=== PATIENT | female | born 1965 | race Caucasian/White ===

== ENCOUNTER → 2017-09-09 | Outpatient (CLI) | payer OTHER | LOC: M.RAD 13:45 | DX: M19.012 Primary osteoarthritis, left shoulder (principal); M75.22 Bicipital tendinitis, left shoulder ==

== ENCOUNTER → 2018-02-10 | Outpatient (CLI) | payer OTHER | LOC: M.MRI 11:00 | DX: M19.012 Primary osteoarthritis, left shoulder (principal); M25.412 Effusion, left shoulder; M75.82 Other shoulder lesions, left shoulder; M25.511 Pain in right shoulder ==

== ENCOUNTER 2018-07-04 15:54 | Emergency (ER) | payer OTHER ==
[~2018-07-04] VITALS: Ht 152.4 cm; Wt 98.0 kg
[2018-07-04] MEDS ORDERED: VITAMIN D1000 UNI1 PO (16:05)
[2018-07-04] MEDS ORDERED: METFORMIN HCL500 MG (16:05)
[2018-07-04] MEDS ORDERED: ZYRTEC10 M5 PO (16:05)
[2018-07-04] MEDS ORDERED: LOVASTAT20 (16:06)
[2018-07-04] MEDS ORDERED: CYMBALTA60 MG PO (16:06)
[2018-07-04] MEDS ORDERED: FELDENE20 MG PO (16:06)
[2018-07-04] MEDS ORDERED: TOPAMAX50 MG PO (16:07)
[2018-07-04] MEDS ORDERED: ZANAFLEX4 MG PO (16:07)
[2018-07-04] MEDS ORDERED: FLONASE 0.05%50 MCG NASAL (16:07)
[2018-07-04] MEDS ORDERED: SYNTHROID112 MC1 PO (16:07)
[2018-07-04] MEDS ORDERED: HYDROCHLOROTHIA25 M2 PO (16:07)
[2018-07-04] MEDS ORDERED: UNICOMPLEX M TA1 TA1 PO (16:08)
[2018-07-04 16:23] LABS: ABSOLUTE BASOPHILS 0.1 thou/uL (0.0-0.2); ABSOLUTE EOSINOPHILS 0.5 thou/uL (0.0-0.7); ABSOLUTE LYMPHOCYTES 2.8 thou/uL (0.8-5.3); ABSOLUTE MONOCYTES 0.6 thou/uL (0.0-1.2); ABSOLUTE NEUTROPHILS 5.2 thou/uL (1.6-8.1); BASOPHILS 0.8 %; EOSINOPHILS 5.6 %; HEMOGLOBIN 14.4 gm/dL (12.0-15.0); LYMPHOCYTES 30.7 %; MCH 30.4 pg (26.0-34.0); MCHC 34.2 g/dL (28.0-37.0); MCV 88.9 fL (80.0-100.0); MONOCYTES 6.3 %; MPV 9.1 fl. (7.2-11.1); NUCLEATED RBCS 0 /100WBC; PLATELET COUNT* 325 thou/uL (150-400); POLYS 56.6 %; RBC 4.73 mil/uL (4.20-5.00); RDW-CV 13.2 % (10.5-14.5); WBC 9.2 thou/uL (4.0-11.0)
[2018-07-04 16:29] LABS: CALCIUM 9.3 mg/dL (8.5-10.1)
[2018-07-04 16:31] LABS: APTT 28.9 Seconds (25.0-31.3)
[2018-07-04 16:34] LABS: ALBUMIN 3.7 g/dL (3.4-5.0); TOTAL BILIRUBIN 0.7 mg/dL (<0.1-1.0); TOTAL PROTEIN 8.4 g/dL (6.4-8.2)
[2018-07-04 17:30] VITALS: BP 145/84
[2018-07-04] MEDS ORDERED: POTASSIUM20 PO (19:08)
== END 2018-07-04 17:30 | disposition home or self-care (01) ==
LOC: M.ERS 15:54
PROVIDERS: Physician Assistant
DX: K64.4 Residual hemorrhoidal skin tags (principal); E87.6 Hypokalemia; I10 Essential (primary) hypertension; E11.9 Type 2 diabetes mellitus without complications; E78.5 Hyperlipidemia, unspecified

== ENCOUNTER 2018-07-27 16:36 | Inpatient (IN) | payer OTHER ==
[~2018-07-27] VITALS: Ht 152.4 cm; Wt 97.5 kg
[~2018-07-27 16:36] MED LIST: CYMBALTA60 MG PO; FELDENE20 MG PO; FLONASE 0.05%50 MCG NASAL; HYDROCHLOROTHIA25 M2 PO; LOVASTAT20 PO; METFORMIN HCL500 MG PO; POTASSIUM20 PO; SYNTHROID112 MC1 PO; TOPAMAX50 MG PO; UNICOMPLEX M TA1 TA1 PO; VITAMIN D3400 UNIT PO; ZANAFLEX4 MG PO; ZYRTEC10 M5 PO
[2018-07-27 16:43] VITALS: BP 137/63
[2018-07-27] MEDS ORDERED: SINGULAIR 10 MG10 M1 PO (16:50)
[2018-07-27] MEDS ORDERED: TESSALON PERLE100 MG PO (16:53)
[2018-07-27 18:12] LABS: CALCIUM 9.6 mg/dL (8.5-10.1); CREATININE 0.9 mg/dL (0.6-1.3); POTASSIUM 3.3 mmol/L (3.5-5.1)
[2018-07-27 18:23] LABS: ALBUMIN 3.8 g/dL (3.4-5.0); TOTAL BILIRUBIN 0.6 mg/dL (<0.1-1.0); TOTAL PROTEIN 8.7 g/dL (6.4-8.2)
[2018-07-27 18:49] LABS: ABSOLUTE BASOPHILS 0.1 thou/uL (0.0-0.2); ABSOLUTE EOSINOPHILS 0.6 thou/uL (0.0-0.7); ABSOLUTE LYMPHOCYTES 1.9 thou/uL (0.8-5.3); ABSOLUTE MONOCYTES 1.1 thou/uL (0.0-1.2); ABSOLUTE NEUTROPHILS 5.4 thou/uL (1.6-8.1); BASOPHILS 0.8 %; EOSINOPHILS 6.3 %; HEMATOCRIT 40.4 % (37.0-47.0); HEMOGLOBIN 13.7 gm/dL (12.0-15.0); LYMPHOCYTES 21.3 %; MCHC 33.9 g/dL (28.0-37.0); MCV 88.5 fL (80.0-100.0); MONOCYTES 11.9 %; NUCLEATED RBCS 0 /100WBC; PLATELET COUNT* 259 thou/uL (150-400); POLYS 59.7 %; RBC 4.57 mil/uL (4.20-5.00); RDW-CV 13.5 % (10.5-14.5); WBC 9.1 thou/uL (4.0-11.0)
[2018-07-27 19:09] LABS: BE 0.5 mmol/L (-2 to +3); HCO3 24.9 mmol/L (22.0-26.0); PCO2 39.3 mmHg (35.0-45.0); PO2 72.1 mmHg (75.0-100.0); pH 7.419 (7.340-7.450)
[2018-07-27 19:14] LABS: URINE BILIRUBIN NEGATIVE (Negative); URINE BLOOD NEGATIVE (Negative); URINE CLARITY CLEAR; URINE COLOR YELLOW; URINE GLUCOSE-RANDOM NEGATIVE (Negative); URINE KETONES NEGATIVE (Negative); URINE LEUKOCYTES-REFLEX NEGATIVE (Negative); URINE NITRITE-REFLEX NEGATIVE (Negative); URINE PROTEIN NEGATIVE (Negative); URINE SPECIFIC GRAVITY >= 1.030 (1.005-1.030); URINE UROBILINOGEN 0.2 E.U./dl (0.2-1.0)
[2018-07-27 20:16] VITALS: BP 133/67
[2018-07-27 20:30] VITALS: BP 129/65
[2018-07-27] MEDS ORDERED: DOXYCYCLINE 10100 MG PO (20:43)
[2018-07-27] MEDS ORDERED: FIBER GUMMIES1 EACH PO (20:48)
[2018-07-27] MEDS ORDERED: GAS RELIEF 8080 MG PO (20:49)
--- NOTE | 2018-07-27 20:49 | NUR ---
ADMIT TO [facility] FOR ASTHMA EXACERBATION. STATES SHE IS BREATHING BETTER NOW. STATES SHE IS FORGETFUL. RECENTLY DIAGNOSED WITH INVASIVE STAGE 3 CARCINOMA RECTAL CANCER. CHEMOTHERAPY ONCOLOGIST DR IRVIN. RADIATION ONCOLOGIST DR. MCCABE. SURGEON DR IBARRA GASTROENTEROLGIST DR. ÁLVAREZ NAVIGATOR DARCIE VÁZQUEZ PLAN TO START CHEMO/RADIATION AFTER THIS ILLNESS FOLLOWED BY SCANS AND THEN SURGERY IN ABOUT 6 MONTHS.
--- NOTE | 2018-07-27 22:00 | NUR ---
PATIENT RECENTLY DX WITH CA. BLIND. 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 LOW ENERGY PER PATIENT D/T ILLNESS. RESPONSIBLE FOR ALL MANAGER SALES TRAINING, INCOME, DRIVING, DOCTORS APPOINTMENTS, ETC. SHE IS FEELING OVERWHELMED. VM LEFT FOR CM AND CONSULT PLACED.
[2018-07-27] MEDS ORDERED: MELATONIN3 MG PO (23:31)
[2018-07-28] VITALS: BP 112/69
[2018-07-28 04:02] LABS: HEMATOCRIT 40.9 % (37.0-47.0); HEMOGLOBIN 13.8 gm/dL (12.0-15.0); MCH 30.1 pg (26.0-34.0); MCHC 33.7 g/dL (28.0-37.0); MCV 89.5 fL (80.0-100.0); MPV 9.4 fl. (7.2-11.1); NUCLEATED RBCS 0 /100WBC; PLATELET COUNT* 259 thou/uL (150-400); RBC 4.57 mil/uL (4.20-5.00); RDW-CV 13.5 % (10.5-14.5); WBC 8.8 thou/uL (4.0-11.0)
[2018-07-28 04:17] LABS: CALCIUM 8.9 mg/dL (8.5-10.1); CREATININE 0.9 mg/dL (0.6-1.3); POTASSIUM 3.8 mmol/L (3.5-5.1)
[2018-07-28 06:28] LABS: ABSOLUTE LYMPHOCYTES 0.4 thou/uL (0.8-5.3); ABSOLUTE MONOCYTES 0.1 thou/uL (0.0-1.2); ABSOLUTE NEUTROPHILS 8.3 thou/uL (1.6-8.1); PLATELET ESTIMATE ADEQUATE
--- NOTE | 2018-07-28 06:49 | NUR ---
STATES SHE CAN BREATHE BETTER THIS AM. CONTINUES ON 2 L NC.
[2018-07-28 08:15] VITALS: BP 139/75
--- NOTE | 2018-07-28 11:00 | NUR ---
MET WITH PT TO DISCUSS HOME SITUATION/DC PLANNING. PT LIVES WITH SPOUSE WHO IS BLIND AND HIS PARENTS. 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 SHE USES CPAP AT NIGHT PT HAS CANCER AND IS TO START CHEMO SOON, AWARE SHE WILL NEED TO RECOVER FROM THIS ILLNESS FIRST. PT STATED SHE MANAGES ALL HOUSEHOLD DUTIES AT HOME AND ASSIST SPOUSE NEEDED, STATES HIS MOTHER HELPS HIM WHEN SHE IS AT WORK. PT VOICING CONCERN ABOUT HOW SHE'LL MANAGE HOUSEHOLD WITH THIS ILLNESS AND ONCE SHE STARTS CHEMO, STATES 'DEPENDS' ON HER. BRAINSTORMED WITH HER RE: ASKING FOR HELP. PT HAS LARGE FAMILY THAT COULD ASSIST IF ASKED. ALSO HER INLAWS COULD ASSIST. SPOUSE IS ON DISABILITY. PT ASKING ABOUT OTHER HELP FOR HIM. WILL GIVE PT RESOURCES FOR BLIND PENSION, CANCER ACTION AND IN HOME CARE THRU MEDICAID (SPOUSE HAS MEDICAID). CM TO FOLLOW
--- NOTE | 2018-07-28 12:47 | EKG ---
[place] [address] ELECTROCARDIOGRAM REPORT Name: MISTI GUSMAN Room: [address] IN [facility].#: [id number] Admission: 07/27/18 Attend Phys: Jorge Yan MD Discharge: Date of : 61 Report #: [id number] THIS REPORT FOR: //name// [facility] ED Test Date: 2018-07-27 Test Time: 17:55:49 Pat Name: MISTI GUSMAN Department: Room: [facility] Gender: Black Studies Professor: Hernesto CASAS : 1965 Requested By: Ziggy Marie Order Number: [id number] MD: Bernardo Oshea Measurements Intervals [place] Rate: 84 P: 21 MA: 152 QRS: -19 QRSD: 117 T: 54 QT: 405 QTc: 479 Interpretive Statements Sinus rhythm Incomplete right bundle branch block No previous ECG available for comparison Electronically Signed On 07-28-2018 12:47:24 AIR CONDITIONING ENGINEER by Bernardo Oshea [email or web address] <ELECTRONICALLY SIGNED> By: Bernardo Oshea MD, [facility] 07/28/18 1247 1755 1755 Bernardo Oshea MD, FAC /EPI
--- NOTE | 2018-07-28 13:30 | NUR ---
Nutrition: Consult received for "cancer." Pt has h/o asthma, rectal cancer. Will start chemo soon. On steroids. BG 180s, alb 3.8. Pt stated her usual wt is 215#. She stated her appetite is good and she is eating well. Regular diet ordered. Pt and denied any nutrition questions/needs. Low risk at this time.
--- NOTE | 2018-07-28 17:26 | NUR ---
PATIENT ALERT AND ORIENTED X 4. VITAL SIGNS STABLE ON 2L OF OXYGEN NASAL CANULA. AFEBRILE. UP WITH ASSISTANCE TO THE BATHROOM. IV PATENT AND SALINE LOCKED. DENIES PAIN AND NAUSEA AT THIS TIME. FALL PRECAUTIONS IN PLACE AND BED ALARM ON. HOURLY ROUNDS MAINTAINED THROUGHOUT THE SHIFT. CALL LIGHT WITHIN REACH. NURSING WILL CONTINUE TO MONITOR.
[2018-07-28 18:55] VITALS: BP 97/52
[2018-07-29 04:30] LABS: ALBUMIN 3.2 g/dL (3.4-5.0); CALCIUM 8.7 mg/dL (8.5-10.1); POTASSIUM 3.6 mmol/L (3.5-5.1); TOTAL BILIRUBIN 0.3 mg/dL (<0.1-1.0); TOTAL PROTEIN 7.6 g/dL (6.4-8.2)
[2018-07-29 04:44] LABS: HEMOGLOBIN 13.5 gm/dL (12.0-15.0); MCH 30.2 pg (26.0-34.0); MCHC 33.7 g/dL (28.0-37.0); MCV 89.6 fL (80.0-100.0); MPV 9.3 fl. (7.2-11.1); NUCLEATED RBCS 0 /100WBC; PLATELET COUNT* 300 thou/uL (150-400); RBC 4.47 mil/uL (4.20-5.00); RDW-CV 13.5 % (10.5-14.5); WBC 18.4 thou/uL (4.0-11.0)
--- NOTE | 2018-07-29 05:42 | NUR ---
REPORT RECEIVED FROM OFF GOING SHIFT AND CARE ASSUMMED. PT AAOX4. RESP REG AND UNALBORED SKIN W/D NO ACUTE DISTRESS NOTED. VSS AND NO ACUTE CHANGES DURING SHIFT. PT HAS NOTABLE AUDIBLE WHZ AND INCREASED COUGH AFTER BREATHING TREATMENTS. PT SATES SHE IS COUGHING UP THICK CLEAR SPUTUM THIS AM. WILL CONTINUE TO MONITOR.
[2018-07-29 07:56] LABS: ABSOLUTE LYMPHOCYTES 2.2 thou/uL (0.8-5.3); ABSOLUTE MONOCYTES 0.4 thou/uL (0.0-1.2); ABSOLUTE NEUTROPHILS 15.8 thou/uL (1.6-8.1); ATYPICAL LYMPHS 3 %; PLATELET ESTIMATE ADEQUATE
[2018-07-29 09:03] VITALS: BP 129/67
[2018-07-29 17:12] VITALS: BP 112/61
--- NOTE | 2018-07-29 17:27 | NUR ---
ASSUMED CARE OF PATIENT AFTER REPIRT AT APPROX 0730. ALERT AND OREINTED X4. ASSESSMENT COMPLETED AND CHARTED. VSS ON ROOM AIR. NO COMPLAINTS OF PAIN, NAUSEA, OR SOA. SOLUMEDROL ADMINISTERED ORDERED. PATIENT RESTED IN BED THROUGHOUT SHIFT AND HAD NO NEW COMPLAINTS. PATIENT WOULD REALLY LIKE TO DISCHARGE TOMORROW SHE HAS FOLLOW UP APPOINTMENTS AT [facility] COMING UP THIS WEEK. WILL RELAY THIS TO HER PHYSICIAN AND CASE MANAGEMENT. HOURLY ROUNDS COMPLETED, CALL LIGHT WITHIN REACH, NURSING WILL CONTINUE TO MONITOR.
[2018-07-29 20:50] VITALS: BP 134/72
--- NOTE | 2018-07-30 06:10 | NUR ---
PATIENT HAS SLEPT WELL THROUGHOUT MOST OF THE NIGHT. VSS ON 2L02 VIA NASAL CANNULA. MEDICATIONS GIVEN ORDERED AND CHARTED. PATIENT IS UP AD-PATRICIA AND STEADY. IV IN LEFT HAND-SL. PATIENT INSTRUCTED TO USE CALL LIGHT WHEN NEEDING ASSISTANCE. HOURLY ROUNDS MADE. WILL CONTINUE WITH PLAN OF CARE AND NURSING TO MONITOR.
[2018-07-30 09:22] VITALS: BP 127/73
[2018-07-30 16:00] VITALS: BP 132/68
--- NOTE | 2018-07-30 17:50 | NUR ---
ASSUMED CARE OF PATIENT AFTER REPORT AT APPROX 0730. ALERT AND ORIENTED X4. ASSESSMENT COMPLETED AND CHARTED. VSS ON ROOM AIR. PATIENTS LUNGS SOUND COURSE AND WHEEZES ON INSPIRATION. NO COMPLAINTS OF NAUSEA OR SOA. SOME COMPLAINTS OF BACK PAIN MANAGED WIHT ORAL MEDICATION. RT TRATMENTS AND SOLUMEFROL ADMINISTERED ORDERED. PATIENT HAVING ANXIETY ABOUT GOING HOME AND BEING SEEN AT THE CANCER CENTER LATER THIS WEEK. PATIENT STARTED HAVING NAUSEA AND VOMITING AFTER DINNER. ALSO HAVING BLOODY DIARRHEA AND VERY CONCERNED ABOUT THAT. NOTIFIED. PATING IS UP AD PATRICIA IN THE ROOM AND USING THE RESTROOM. HOURLY ROUNDS COMPLETED, CALL LIGHT IN REACH, NURSING WILL CONTINUE TO MONITOR.
[2018-07-30 19:40] VITALS: BP 132/62
[2018-07-31 04:18] LABS: ABSOLUTE MONOCYTES 1.4 thou/uL (0.0-1.2); ABSOLUTE NEUTROPHILS 10.1 thou/uL (1.6-8.1); BASOPHILS 0.2 %; EOSINOPHILS 0.1 %; HEMOGLOBIN 12.5 gm/dL (12.0-15.0); LYMPHOCYTES 25.5 %; MCH 29.6 pg (26.0-34.0); MCHC 32.9 g/dL (28.0-37.0); MONOCYTES 9.3 %; MPV 9.1 fl. (7.2-11.1); NUCLEATED RBCS 0 /100WBC; PLATELET COUNT* 285 thou/uL (150-400); POLYS 64.9 %; RBC 4.23 mil/uL (4.20-5.00); RDW-CV 13.5 % (10.5-14.5); WBC 15.6 thou/uL (4.0-11.0)
[2018-07-31 04:40] LABS: ALBUMIN 2.9 g/dL (3.4-5.0); CALCIUM 8.4 mg/dL (8.5-10.1); CREATININE 0.8 mg/dL (0.6-1.3); POTASSIUM 3.2 mmol/L (3.5-5.1); TOTAL BILIRUBIN 0.2 mg/dL (<0.1-1.0); TOTAL PROTEIN 6.7 g/dL (6.4-8.2)
--- NOTE | 2018-07-31 05:48 | NUR ---
PATIENT HAS SLEPT WELL THROUGHOUT THE NIGHT. VSS ON 2L 02 VIA NASAL CANNULA. NO C/O PAIN. PATIENT IS UP AD-PATRICIA AND STEADY. IV IN LEFT HAND-SL. PATIENT INSTRUCTED TO USE CALL LIGHT WHEN NEEDING ASSISTANCE. HOURLY ROUNDS MADE. WILL CONTINUE WITH PLAN OF CARE AND NURSING TO MONITOR.
[2018-07-31 07:30] VITALS: BP 135/65
[2018-07-31 11:51] VITALS: BP 135/65
[2018-07-31] MEDS ORDERED: VENTOLIN HFA 1818 GM INH (12:07)
[2018-07-31] MEDS ORDERED: ADVAIR HFA 230M12 GM INH (12:08)
[2018-07-31] MEDS ORDERED: PREDNISONE 10 M10 MG PO (12:09)
--- NOTE | 2018-07-31 12:18 | CON ---
[address] [address] CONSULTATION Name: MISTI GUSMAN Room: [address] IN .R.#: [id number] Admission: 07/27/18 Attend Phys: Jorge Yan MD Discharge: Date of : 61 Report #: [id number] THIS REPORT FOR: //name// CC: Jorge Ware DATE OF SERVICE: 07/30/2018 REASON FOR EVALUATION: Cough, wheezing, chest tightness, asthma exacerbation. HISTORY OF PRESENT ILLNESS: The patient is a pleasant 52-year-old woman who was admitted on 07/27/2018. She had diagnosis of rectal cancer. She initially had severe cough since . She states that she had sick contact and since then had upper respiratory tract infection. Her cough is intractable associated with chest tightness, wheezing, yellowish sputum. She went to her primary physician, was prescribed doxycycline without improvement and then came to the hospital, has been on steroids and bronchodilator treatment. She feels partial treatment. She feels she improved less than 50%, continued to have wheezing. PAST MEDICAL HISTORY: History of asthma. She states it is mainly seasonal in summertime; however, worse with an upper respiratory tract infection, history of hypertension, diabetes, sinus surgery. History of rectal cancer, recent diagnosis. Not on treatment. SOCIAL HISTORY: Denies smoking, alcohol abuse. FAMILY HISTORY: Sick contacts recently with her family with recent upper respiratory tract infection in the family. MEDICATIONS: Reviewed as in the chart. ALLERGIES: ALLERGIC TO LATEX, LYRICA, GABAPENTIN. REVIEW OF SYSTEMS: Has history of wheezing, cough. Denies chest pain. Denies fever or chills. Other review of systems reviewed and negative. PHYSICAL EXAMINATION: GENERAL: The patient is pleasant, not in distress. VITAL SIGNS: Reviewed and stable. Afebrile, pulse 74, blood pressure 127/73, respiratory rate is 16 on 2 liters nasal cannula. HEAD AND NECK: Neck supple. Oral mucosa is clear. No lymph nodes enlargement. CHEST: She has bilateral expiratory wheezing. Adequate air movement. CARDIOVASCULAR: Regular rhythm, normal S1, S2. ABDOMEN: Soft, nontender. EXTREMITIES: No edema. PSYCHIATRIC: Looks depressed[place] [address] CONSULTATION Name: MISTI GUSMAN Room: [address]#: [id number] Admission: 07/27/18 Attend Phys: Jorge Yan MD Discharge: Date of : 61 Report #: [id number] NEUROLOGIC: No focal deficit. SKIN: No changes. No rash. LABORATORY AND OTHER DATABASE She had white blood cell count yesterday of 18.4, hemoglobin 13.5. A chest x-ray, which was done 07/29/2018 showed no acute infiltrate, which I have personally reviewed. MEDICATIONS: Reviewed as in the chart and include the following: Currently on albuterol nebs, Pulmicort nebs. She is on pain medication, steroids 62.5 mg q. 8 hours. She is on Rocephin 2. ASSESSMENT AND PLAN: 1. Asthma exacerbation, still with bronchospasm. At this time, we will continue bronchodilator treatment to be used every 4 hours. She is currently on steroids every 8 hours, will be decreased to every 12 hours. Doubt pneumonia. Her chest x-ray has been clear. Recommend to discontinue antibiotics. There is no consolidation on chest x-ray, which I have reviewed. Add azithromycin for significant asthma. 2. Chronic asthma. Her asthma is mainly seasonal however, at this time, she has exacerbation. Recommend to resume Advair on discharge and albuterol as needed. Need to have asthma action plan as well and to follow up as outpatient. 3. The patient to follow up as outpatient. Recommend to keep the patient hospitalized with persistent symptoms and reevaluate. 4. Leukocytosis. Recommend to monitor. <ELECTRONICALLY SIGNED> By: Raul Patel MD 07/31/18 1218 1437 1949Asem Lu Santos MD /nt
--- NOTE | 2018-07-31 12:50 | CON ---
[address] [address] CONSULTATION Name: MISTI GUSMAN Room: [address] IN [facility]#: [id number] Admission: 07/27/18 Attend Phys: Jorge Yan MD Discharge: Date of : 61 Report #: [id number] THIS REPORT FOR: //name// CC: Jorge Ware DATE OF SERVICE: 07/29/2018 REASON FOR CONSULTATION: Newly diagnosed rectal cancer stage III, T3 N1 M0. SUBJECTIVE: A 52-year-old female was recently diagnosed with a rectal cancer, localized. She was seen as an initial visit on July 23 and the plan is to start concurrent chemoradiation. She was supposed to see Radiation Oncology, Dr. Whyte, yesterday; however, she was admitted to the hospital because of cough, wheezing, respiratory distress. She has no fever; however, she has a productive yellowish sputum with positive sick contacts. The patient has been started on IV steroids and bronchodilators. She has been having some mild improvement of her symptoms. REVIEW OF SYSTEMS: All systems reviewed. It was negative except the above. PAST MEDICAL HISTORY: Asthma, newly diagnosed rectal cancer. MEDICATIONS: Per admission list. ALLERGIES: GABAPENTIN, LATEX AND LYRICA. FURTHER PAST MEDICAL HISTORY: Hypertension, diabetes mellitus, asthma. FAMILY HISTORY: No family history of malignancy. SOCIAL HISTORY: No smoking, no alcohol abuse, no drug abuse. PHYSICAL EXAMINATION: VITAL SIGNS: Today, temperature 36.7, pulse 95, respirations 18, blood pressure is 129/67, SpO2 was 96% on 2 liters. GENERAL: The patient was sitting in chair, was not in acute distress. LUNGS: Coarse crackles on both sides. HEART: Regular rate and rhythm. S1, S2 within normal limits. ABDOMEN: Soft, nontender, nondistended, bowel sounds positive. EXTREMITIES: No edema, no cyanosis, no clubbing. IMAGING: Chest x-ray showed no acute cardiopulmonary process identified. LABORATORY DATA: Today, WBC of 18.5, hemoglobin 13.5, platelets 300. Creatinine is 1.0, AST 17, [place] 27[place] [address] CONSULTATION Name: MISTI GUSMAN Room: [address]#: [id number] Admission: 07/27/18 Attend Phys: Jorge Yan MD Discharge: Date of : 61 Report #: [id number] ASSESSMENT AND PLAN: A 52-year-old female who has been newly diagnosed with a localized rectal cancer stage III. She is supposed to start concurrent chemoradiation; however, she was admitted to the hospital because of bronchitis/pneumonitis with asthma exacerbation. At this point, the patient has rescheduled her appointment with Radiation Oncology. Once the patient has been discharged, she is going to followup to initiate her treatment with the concurrent chemoradiation. Thank you for this consultation. We are going to follow the patient with you during hospitalization. <ELECTRONICALLY SIGNED> By: Chayito Landry MD 07/31/18 1250 1045 2304Molenny Landry MD /nt
[2018-07-31 13:57] VITALS: BP 135/65
--- NOTE | 2018-07-31 14:03 | NUR ---
PATIENT LEFT UNIT AT 1340. ALERT AND ORIENTED X4. UP AD PATRICIA IN ROOM. IV DC'D. DENIES NEED FOR PAIN AND NAUSEA. ALL PERSONAL ITEMS LEFT WITH PATIENT. DISCHARGE INSTRUCTIONS, PRESCRIPTIONS, AND NEW MEDICATION INFORMATION SENT WITH PATIENT. VSS ON ROOM AIR. HOURLY ROUNDS HAVE BEEN MAINTAINED THROUGHOUT SHIFT. LEFT WITH FRIEND VIA CAR.
== END 2018-07-31 13:40 | disposition home or self-care (01) | DRG 193 ==
LOC: M.ERS 16:36 → M.TBA-ER 19:40 → M.ORTHSURG 19:40
PROVIDERS: Nurse Practitioner Psychiatric/Mental Health; ADMIT Internal Medicine
DX: J18.9 Pneumonia, unspecified organism (principal); J96.01 Acute respiratory failure with hypoxia; J45.901 Unspecified asthma with (acute) exacerbation; I10 Essential (primary) hypertension; E78.5 Hyperlipidemia, unspecified; E11.9 Type 2 diabetes mellitus without complications; E87.6 Hypokalemia; D72.829 Elevated white blood cell count, unspecified; J20.9 Acute bronchitis, unspecified; Z85.048 Personal history of other malignant neoplasm of rectum, rectosigmoid junction, and anus; Z88.8 Allergy status to other drugs, medicaments and biological substances; Z91.040 Latex allergy status; Z79.899 Other long term (current) drug therapy

== ENCOUNTER → 2020-03-21 | Outpatient (CLI) | payer OTHER ==
[~2020-03-21] MED LIST changes: +ADVAIR HFA 230M12 GM INH; +DOXYCYCLINE 10100 MG PO; +FIBER GUMMIES1 EACH PO; +GAS RELIEF 8080 MG PO; +MELATONIN3 MG PO; +PREDNISONE 10 M10 MG PO; +SINGULAIR 10 MG10 M1 PO; +TESSALON PERLE100 MG PO; +VENTOLIN HFA 1818 GM INH
== END ==
LOC: M.RAD 11:00
PROVIDERS: ATTEND Family Medicine
DX: R47.02 Dysphasia (principal); R05 Cough

== ENCOUNTER → 2020-09-12 | Outpatient (CLI) | payer OTHER ==
[~2020-09-12] MED LIST changes: +DIFLUCAN150 MG PO; +DULOXETINE HCL30 MG PO; +DULOXETINE HCL60 MG PO; +EUTHYROX112 MCG PO; +K-DUR 20 MEQ T20 MEQ PO; +LOVASTATIN 20 M20 MG PO; +METFORMIN HCL500 M1 PO; +METHOCARBAMOL500 M2 PO; +TOPIRAMATE50 MG PO
== END ==
LOC: M.LAB 11:40
PROVIDERS: ATTEND Orthopaedic Surgery
DX: Z01.812 Encounter for preprocedural laboratory examination (principal); Z20.822 Contact with and (suspected) exposure to COVID-19

== ENCOUNTER → 2020-09-15 | Day surgery (SDC) | payer OTHER ==
--- NOTE | 2020-09-15 14:08 | EKG ---
[place] [address] ELECTROCARDIOGRAM REPORT Name: MISTI GUSMAN Thomas Room: [facility]#: [id number] Admission: 09/15/20 Attend Phys: Devyn Becerril, Discharge: Date of : 61 Date of Service: 09/15/20 1232 Report #: [id number] THIS REPORT FOR: //name// 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: : 1965 Requested By: Devyn Becerril Order Number: [id number] MD: Bernardo Oshea Measurements Intervals [place] Rate: 72 P: 32 AK: 154 QRS: -35 QRSD: 107 T: 53 QT: 415 QTc: 455 Interpretive Statements Sinus rhythm Left axis deviation Abnormal R-wave progression, late transition Compared to ECG 07/27/2018 17:55:49 Left-axis deviation now present Incomplete right bundle-branch block no longer present Electronically Signed On 09-15-2020 14:08:41 COMMERCIAL CREDIT HEAD by Bernardo Oshea [email or web address] <ELECTRONICALLY SIGNED> By: Bernardo Oshea MD, FACC 09/15/20 1408 1232 1232 Bernardo Oshea MD, [facility] /EPI
[2020-09-15 14:38] LABS: CALCIUM 9.3 mg/dL (8.5-10.1); CREATININE 0.9 mg/dL (0.6-1.3); POTASSIUM 3.8 mmol/L (3.5-5.1)
--- NOTE | 2020-09-20 09:10 | OP ---
[address] [address] OPERATIVE REPORT Name: MISTI GUSMAN Room: [facility]#: [id number] Admission: 09/15/20 Attend Phys: Devyn Becerril II Discharge: Date of : 61 Report #: [id number] THIS REPORT FOR: cc: Efrem Ware Vincent R. DO ~ Devyn Becerril II, DO DATE OF SERVICE: 09/15/2020 PREOPERATIVE DIAGNOSIS: Right shoulder rotator cuff tear. POSTOPERATIVE DIAGNOSES: 1. Right shoulder rotator cuff tear. 2. Biceps tendon tear. 3. Bone and cartilage debris, glenohumeral joint with labral tears and rotator cuff tear. 4. Lateral clavicle osteoarthritis. 5. Subacromial impingement. PROCEDURES: 1. Right shoulder arthroscopic surgery with rotator cuff repair. 2. Biceps tenodesis. 3. Extensive debridement of labral tears, rotator cuff tear and glenohumeral joint bone and cartilage debris. 4. Lateral clavicle excision. 5. Subacromial decompression. SURGEON: Devyn Becerril II, DO. ASSISTANT ACCOUNT MANAGER: CONNIE Noonan. ANESTHESIA: Per operative record. ESTIMATED BLOOD LOSS: Minimal. ANTIBIOTICS: Per operative record. DRAINS: None. COMPLICATIONS: None. CONDITION OF THE PATIENT: Stable to recovery room. DESCRIPTION OF PROCEDURE: The patient was taken to the operative suite and placed supine on the operating table, given appropriate anesthesia. The patient's right shoulder was sterilely prepped and draped in [address] [address] OPERATIVE REPORT Name: MISTI GUSMAN Room: [facility]#: [id number] Admission: 09/15/20 Attend Phys: Devyn Becerril II Discharge: Date of : 61 Report #: [id number] chair position. All bony prominences were well padded. Surgery began by posterior portal incision. The arthroscope was advanced in the joint. There was shown to be a tear to the biceps tendon near its attachment site at the glenoid. It was also in the labral tears and bone and cartilage debris within the glenohumeral joint. Establishing an anterior portal, the shaver was introduced and debridement throughout the superior and inferior as well as anterior and posterior portions of the glenohumeral joint was performed to remove the labral tears, excessive bone and cartilage debris and rotator cuff tears as well as biceps tendon tears. The biceps tendon was shown to be torn more than 50%. A suture was then placed through the biceps tendon distal to it stairs and it was secured into the bicipital groove utilizing a suture anchor. This was then clipped from its proximal attachment and the stump was removed utilizing a shaver. The arthroscope was advanced in the subacromial space and subacromial decompression. Partial anterior acromioplasty was performed with significant impingement in the subacromial region. A distal center of lateral clavicle was then excised utilizing a shaver as well as arthroscopic bur to remove the distal center of clavicle due to significant osteoarthritis at the AC joint. Attention was then turned to the rotator cuff. There was shown to be approximately 1 cm tear to the lateral margin. This was debrided with a shaver down to fresh tissue. A bone bed was then repaired on the lateral humerus down to bleeding bone. A 2 suture tapes were then placed in the proximal aspect of the rotator cuff tear. These were then placed in excellent configuration and anchored laterally with 2 suture anchors. These were probed and shown to be excellent repair of the rotator cuff with no evidence of re-tear and full range of motion upon finishing. The wound was then copiously irrigated and closed with a 3-0 nylon in simple interrupted fashion. Dermabond, sterile dressing and sling were applied. The patient transported to recovery room in stable condition. Counts were correct throughout the procedure. <ELECTRONICALLY SIGNED> By: Devyn Becerril II, DO 09/20/20 0910 2209 2225Devyn Becerril II, DO /nt
== END | disposition home or self-care (01) ==
LOC: M.SUR 05:33
PROVIDERS: Anesthesiology; ATTEND Orthopaedic Surgery
DX: S46.011A Strain of muscle(s) and tendon(s) of the rotator cuff of right shoulder, initial encounter (principal); S46.211A Strain of muscle, fascia and tendon of other parts of biceps, right arm, initial encounter; M24.111 Other articular cartilage disorders, right shoulder; M19.011 Primary osteoarthritis, right shoulder; M75.41 Impingement syndrome of right shoulder; J45.909 Unspecified asthma, uncomplicated; M19.90 Unspecified osteoarthritis, unspecified site; Z98.890 Other specified postprocedural states; Z79.899 Other long term (current) drug therapy; Z85.038 Personal history of other malignant neoplasm of large intestine; Z88.8 Allergy status to other drugs, medicaments and biological substances; Z91.040 Latex allergy status; X58.XXXA Exposure to other specified factors, initial encounter; Y93.89 Activity, other specified; Y92.89 Other specified places as the place of occurrence of the external cause; Y99.8 Other external cause status